=== PATIENT | female | born 1990 | race Caucasian/White ===

== ENCOUNTER 2019-06-25 00:02 | Inpatient (IN) | payer OTHER ==
[~2019-06-25] VITALS: Ht 162.6 cm; Wt 73.0 kg
[~2019-06-25 00:02] MED LIST: VITAFOL-OB+DHA1 EACH PO
[2019-06-25] MEDS ORDERED: VITAFOL-OB+DHA1 EACH PO (00:54)
[2019-06-25] MEDS ORDERED: ACYCLOVIR400 MG PO (00:54)
--- NOTE | 2019-06-25 12:36 | PR ---
[facility] [address], [place] [address] Signed PP Progress Notes Datetime Report Generated by CPN: 06/25/2019 12:36 SUBJECTIVE: [id number] Pain Comments: PP bleeding Nausea/Vomiting: Denies Vital Signs: [id number] Vital Signs: Reviewed Notable Details: One elevated BP while undergoing painful bimanual exam. Will monitor EXAM: [id number] Cardiovascular: Normal Respiratory: Normal Abdomen/Uterus: Abnormal Lochia: Abnormal Vulva/Perineum: Normal Breasts: Not Done CVA Tenderness: Not Done Extremities: Not Done Exam Comments: Fundus very firm. W/ fundal pressure small amount of continued bleeding and clot. Bimanual exam performed that expressed one large clot and a small fragment of membranes. No additional retained products of conception noted. Uterus firm. Pt tolerated well with some discomfort IMPRESSION/PLAN/PROCEDURES: [id number] Progress Notes: Pt w/ bleeding and on exam small fragment of retained membranes. Reviewed I/Os with RN who continues to monitor QBL with weighed pads. Blood loss has been replaced 3:1 w/ crystaloid and pit continues per protocol. Pt received cytotec orally. Order for IM Methergine given now. Will continue to monitor bleeding. Admission Hgb 11.0. If additional significant bleeding noted, consider TXA, D_C, or Bakri. Reviewed w/ patient and . All questions answered. Signing Physician: Carrol Gomez DO Copies: ~ *Electronically Signed* 06/25/19 2788 CARROL GOMEZ DO PATIENT NAME: MARGARET SHER PROGRESS NOTE DATE OF : 89 PHYSICIAN: CARROL GOMEZ DO RPT #: [id number] REPORT IS CONFIDENTIAL AND NOT TO BE RELEASED WITHOUT AUTHORIZATION
--- NOTE | 2019-06-26 08:26 | PR ---
[facility] [address] [facility] [place], [place] [address] Signed PP Progress Notes Datetime Report Generated by CPN: 06/26/2019 08:26 SUBJECTIVE: [id number] Pain: Within normal limits Pain Comments: PP bleeding Nausea/Vomiting: Denies Flatus: Yes Bowel Movement: No Vital Signs: [id number] Vital Signs: Reviewed; Within Normal Limits Notable Details: One elevated BP while undergoing painful bimanual exam. Will monitor EXAM: [id number] Cardiovascular: Normal Respiratory: Normal Abdomen/Uterus: Normal Lochia: Normal Vulva/Perineum: Not Done Breasts: Not Done CVA Tenderness: Normal Extremities: Normal Incision: Not Applicable Progress: Normal Exam Comments: Fundus firm U-2 nontender IMPRESSION/PLAN/PROCEDURES: [id number] Impression: Normal progression Plan: Continue present management Progress Notes: Pt seen and examined. Doing well. Ambulating, voiding, and tolerating full diet. Pain and lochia minimal. Bleeding scant. Some difficutly w/ maintaining glucose levels. Anticipate d/c home tomorrow. Reviewed stable Hgb 10.3. All questions answered Signing Physician: Carrol Gomez DO Copies: ~ *Electronically Signed* 06/26/19 0826 CARROL GOMEZ DO PATIENT NAME: MARGARET SHER PROGRESS NOTE DATE OF : 89 PHYSICIAN: CARROL GOMEZ DO RPT #: [id number] REPORT IS CONFIDENTIAL AND NOT TO BE RELEASED WITHOUT AUTHORIZATION
--- NOTE | 2019-06-27 10:39 | PR ---
[facility] [address] [facility] [place], [place] [address] Signed PP Progress Notes Datetime Report Generated by CPN: 06/27/2019 10:39 SUBJECTIVE: [id number] Pain: Within normal limits Pain Comments: PP bleeding Nausea/Vomiting: Denies Flatus: Yes Bowel Movement: No Vital Signs: [id number] Vital Signs: Reviewed; Within Normal Limits Notable Details: One elevated BP while undergoing painful bimanual exam. Will monitor EXAM: [id number] Cardiovascular: Normal Respiratory: Normal Abdomen/Uterus: Normal Lochia: Normal Vulva/Perineum: Not Done Breasts: Not Done CVA Tenderness: Normal Extremities: Normal Incision: Not Applicable Progress: Normal Exam Comments: Fundus firm U-2 nontender IMPRESSION/PLAN/PROCEDURES: [id number] Impression: Normal progression Plan: Discharge Progress Notes: Pt seen and examined. Doing well. Ambulating voiding and tolerating full diet. Pain and lochia minimal. well. Bleeding has been light. no other concerns. D/C home today. Reviewed instructions in detail. Signing Physician: Carrol Gomez DO Copies: ~ *Electronically Signed* 06/27/19 1039 CARROL GOMEZ DO PATIENT NAME: MARGARET SHER PROGRESS NOTE DATE OF : 89 PHYSICIAN: CARROL GOMEZ DO RPT #: [id number] REPORT IS CONFIDENTIAL AND NOT TO BE RELEASED WITHOUT AUTHORIZATION
== END 2019-06-27 12:10 | disposition home or self-care (01) | DRG 806 ==
LOC: FBC 00:02
PROVIDERS: ADMIT Obstetrics & Gynecology
PROC: 10E0XZZ Delivery of Products of Conception, External Approach (ICD-10-PCS; principal; 2019-06-25)
PROC: 0HQ9XZZ Repair Perineum Skin, External Approach (ICD-10-PCS; 2019-06-25)
PROC: 10907ZC Drainage of Amniotic Fluid, Therapeutic from Products of Conception, Via Natural or Artificial Opening (ICD-10-PCS; 2019-06-25)
PROC: 3E0P7VZ Introduction of Hormone into Female Reproductive, Via Natural or Artificial Opening (ICD-10-PCS; 2019-06-25)
PROC: 00HU33Z Insertion of Infusion Device into Spinal Canal, Percutaneous Approach (ICD-10-PCS; 2019-06-25)
PROC: 3E0R3BZ Introduction of Anesthetic Agent into Spinal Canal, Percutaneous Approach (ICD-10-PCS; 2019-06-25)
DX: O62.3 Precipitate labor (principal); O72.2 Delayed and secondary postpartum hemorrhage; Z37.0 Single live birth; O98.32 Other infections with a predominantly sexual mode of transmission complicating childbirth; O99.354 Diseases of the nervous system complicating childbirth; Z3A.40 40 weeks gestation of pregnancy; O70.0 First degree perineal laceration during delivery; A60.00 Herpesviral infection of urogenital system, unspecified; G43.909 Migraine, unspecified, not intractable, without status migrainosus; Z79.899 Other long term (current) drug therapy; Z86.19 Personal history of other infectious and parasitic diseases
CPT/HCPCS: 01960; 36415; 85027; J2210; J2590; J2795; J3010; J7120